=== PATIENT | female | born 2000 | race Asian ===

== ENCOUNTER 2022-07-13 09:18 | Emergency (ER) | payer OTHER ==
[~2022-07-13] VITALS: Ht 162.6 cm; Wt 54.4 kg
[2022-07-13 09:32] VITALS: BP 122/80
--- NOTE | 2022-07-13 09:49 | NUR ---
DR. ROSALES DONE THE BEDSIDE EXAM.
--- NOTE | 2022-07-13 09:55 | NUR ---
URINE HCG DONE BY STUDENT NURSE: NEGATIVE.
--- NOTE | 2022-07-13 10:32 | NUR ---
PER DR. ROSALES. URINE DIP DONE. RESULT REPORTED TO DR. ROSALES.
[2022-07-13] MEDS ORDERED: MEDR10TA PO (10:42)
[2022-07-13 10:48] VITALS: BP 112/75
--- NOTE | 2022-07-13 10:49 | NUR ---
Patient discharged with v/s stable. Written and verbal after care instructions given and explained. Patient verbalized understanding. Ambulatory with steady gait. All questions addressed prior to discharge. Advised to follow up with PMD.
== END 2022-07-13 10:48 | disposition home or self-care (01) ==
LOC: MED 09:18
DX: N93.8 Other specified abnormal uterine and vaginal bleeding (principal); Z72.89 Other problems related to lifestyle
CPT/HCPCS: 81002; 81025; 99283